=== PATIENT | female | born 1965 | race Caucasian/White ===

== ENCOUNTER 2017-12-02 21:14 | Emergency (ER) | payer BC ==
[2017-12-02 21:23] VITALS: BP 108/59; BMI 51.5
[2017-12-03] MEDS ORDERED: DUONEB 0.5 MG/3 MG NEB ONE (00:37)
[2017-12-03] MEDS ORDERED: SOLU-Medrol 125 MG VIAL IM ONE (00:37)
--- NOTE | 2017-12-03 00:42 | DR.GENAD ---
HPI - PCP Primary Care Physician: Dr. Aggarwal - Complaint/Symptoms Chief Complaint Doctors Comments: Patient is complaining or left ear pain, sore throat, cold, cough, wheezing for the past seven days with no energy. Paitnet state she is a patient of Dr. Aggarwal and is not taking any medicines for wheezing. states she smokes on pack cigarettes daily. she denies chest pain or SOB. She denies nausea or vomiting. States she has been in bed all day and her children made her come to the emergency room. Chief Complaint:: C/O Headache, Cough, Left Ear pain, Body aches Self Treatment fo Chief Complaint: Patient taken Candida Hein - Nurses notes reviewed Nurses Notes Review: Yes - Source History Provided: Patient - Mode of Arrival Mode of Arrival: Ambulatory - Timing Onset of Chief Complaint: 11/25/17 Came on: Gradually - Duration Duration: Constant How lon Duration: Days - Location Location: left ear pain - Severity Severity: Moderate - Modifying Factors Worsens:: nothing Improves:: nothing PMH - PMH Past Medical History: Yes Past Medical History: Gout, Hypertension, Hypothyroidism Past Surgical History: Yes Surgical History: Thyroidectomy Past Surgical History Comment: Tubaligation - Family History History of Family Medical Conditions: Yes Family Medical History: Cancer, Hypertension - Social History Does patient currently use any type of tobacco product: Yes Have you used tobacco products in the last 12 months: Yes Type of Tobacco Use: Cigarettes Alcohol Use: None Do you use any recreational Drugs:: No Lives With: Family Lives Where: Home - infectious screening In the last 2 months have you had wt loss of >10#?: NO Have you had fever, night sweats or hemotysis?: No Have you traveled outside the country in the last 6 months?: No Isolation: Standard ROS - Review of Systems Constitutional: No Symptoms Reported, Chills, Weakness, Fatigue. negative: See HPI, Diaphoresis, Fever, Malaise, Irritable, Loss of Appetite, Other Eyes: No Symptoms Reported ENTM: No Symptoms Reported, Ear Pain, Nose Discharge, Nose Congestion, Throat Pain. negative: See HPI, Ear Discharge, Pulling on Ears, Hearing Loss, Nose Pain, Epistaxis, Mouth Pain, Mouth Swelling, Loose Teeth, Drooling, Throat Swelling, Ear Foreign Body Respiratoy: No Symptoms Reported, Non-Productive Cough, Wheezing. negative: See HPI, Productive Cough, Moist Cough, Dry Cough, Hacking Cough, Barking Cough , Brassy Cough, Orthopnea, Short of Breath, Stridor, Hemoptysis, Other Cardiovascular: No Symptoms Reported. negative: See HPI, Chest Pain, Edema, Palpitations, Syncope, Cyanosis, Skin Mottling, Other Gastrointestinal/Abdominal: No Symptoms Reported. negative: See HPI, Abdominal Pain, Constipation, Diarrhea, Nausea, Vomiting, Food Intolerance, Other Genitourinary: No Symptoms Reported Neurological: No Symptoms Reported. negative: See HPI, Anxiety, Depressed, Emotional Problems, Headache, Numbness, Paresthesia, Pre-existing Deficit, Seizure, Tingling, Tremors, Weakness, Dizziness, Problems Walking, Speech Problem, Other Musculoskeletal: No Symptoms Reported Integumentary: No Symptoms Reported Hematologic/Lymphatic: No Symptoms Reported Endocrine: No Symptoms Reported. negative: See HPI, Excessive Sweating, Flushing, Intolerance to Cold, Intolerance to Heat, Increased Hunger, Increased Thirst, Increased Urine, Unexplained Weight Gain, Unexplained Weight Loss, Failure to Thrive, Decreased Appetite, Other Psychiatric: No Symptoms Reported. negative: See HPI, Anxiety, Depression, Hallucinations, Excessive crying, Suicidal, Other PE - Vital Signs Vitals: Temperature 99.0 F Pulse Rate 97 Respiratory Rate 22 Blood Pressure 108/59 O2 Sat by Pulse Oximetry 96 - General Limitations: No Limitations General Appearance: Alert, In Distress (slight) - Head Head Exam: Normal Inspection, Atraumatic, Normocephalic - Eyes Eye exam: Normal Appearance, PERRL, EOMI. negative: Scleral Icterus, Conjunctival Injection, Nystagmus, Miosis, Mydrasis, Periorbital Swelling, Periorbital Tenderness, Other - ENT ENT Exam: Normal Exam, Normal Oropharynx, Normal External Ear Exam, Mucous Membranes Moist, TM's Normal Bilaterally External Ear Exam: Normal External Inspection TM/Canal Exam: Bilateral Normal Nose Exam: Normal Nose Exam Mouth Exam: Normal Inspection Throat Exam: Normal Inspection - Neck Neck Exam: Normal Inspection, Full ROM, Trachea Midline - Chest Chest Inspection: Normal Inspection, Symmetric Chest Wall Rise - Respiratory Respiratory Exam: Normal Lung Sounds Bilat Respiratory Exam: Bilateral Wheezing, Bilateral Rhonchi (prolonged expiration) - Cardiovascular Cardiovascular Exam: Regular Rate, Normal Rhythm, Normal Heart Sounds - Abdominal Exam Abdominal Exam: Normal Inspection, Normal Bowel Sounds, Soft Abdominal Tenderness: negative: RUQ, RLQ, LUQ, LLQ, Epigastrium, Suprapubic, Diffuse, Mild, Moderate, Severe, Other - Extremities Extremities Exam: Normal Inspection, Full ROM, Normal Capillary Refill - Back Back Exam: Normal Inspection, Full ROM. negative: Tenderness, (R) CVA Tenderness, (L) CVA Tenderness, Muscle Spasm, Paraspinal Tenderness, Vertebral Tenderness, Rashes, (R) Sciatic Notch Tenderness, (L) Sciatic Notch Tendern, (R ) Straight Leg Raise, (L) Straight Leg Raise, Other - Neurologic Neurological Exam: Alert, Oriented X3, CN II-XII Intact, Normal Gait, Reflexes Normal - Psychiatric Psychiatric Exam: Normal Affect, Normal Mood - Skin Skin Exam: Warm, Dry, Intact, Normal Color. negative: Rash, Cyanosis, Diaphoresis, Erythema, Pallor, Mottled, Other ROR - Labs Reviewed Laboratory Results Reviewed?: Yes (all labs and x-ray results reveiwed and discussed with patient) Laboratory: Influenza Type A (PCR) Positive (NEGATIVE) A 12/03/17 01:14 Influenza Type B (PCR) Negative (NEGATIVE) 12/03/17 01:14 - XRAY XRAY Interpreted by: Radiologist (CXR: Mild increased central peribronchial thickening is noted bilaterally which is nonspecific however can be seen in bronchitis) - Diagnosis Discharge Problem: Influenza A, Sinusitis, acute Acute bronchitis Qualifiers: Bronchitis organism: other organism Qualified Code(s): J20.8 - Acute bronchitis due to other specified organisms - Discharge Plan Disposition: 01 HOME, SELF-CARE Condition: Stable Prescriptions: Cephalexin [KEFLEX CAP 500 MG *] 500 mg PO TID #30 cap Cetirizine HCl [Zyrtec Tab 10 mg] 10 mg PO DAILY #30 tab Guaifenesin-Codeine [ROBITUSSIN AC SYRUP (W/CODEINE) *] 10 ml PO Q6H PRN #120 ml PRN Reason: Cough/Congestion Oseltamivir Phosphate [Tamiflu] 75 mg PO BID #10 cap - Follow ups/Referrals Follow ups/Referrals: Fabian Aggarwal [Primary Care Provider] - 3 days - Instructions Instructions: Influenza, Adult, [id number], Acute Bronchitis, Sinusitis, Adult, [id number]
[2017-12-03] MEDS ORDERED: DUONEB 0.5 MG/3 MG ONE (00:45)
[2017-12-03] MEDS ORDERED: SOLU-Medrol 125 MG VIAL ONE (01:09)
--- NOTE | 2017-12-03 02:25 | RAD ---
AP Chest Indication: Body aches with cough Comparison: None available Findings: The trachea is midline. The cardiac silhouette is unremarkable. Mild increased central peribronchia l thickening is noted bilaterally which is nonspecific however can be seen in setting of acute bronch itis and/or viral/atypical pneumonia. No dense airspace consolidation, pleural effusion or pneumothor ax.. The bony thorax is unremarkable. IMPRESSION: 1. Mild increased central peribronchial thickening is noted bilaterally which is nonspecific however can be seen in setting of acute bronchitis and/or viral/atypical pneumonia. Reported By:
[2017-12-03] MEDS ORDERED: KEFLEX CAP 500 MG PO ONE ×2 (02:38→02:46)
[2017-12-03] MEDS ORDERED: ROBITUSSIN AC PO STA (02:39)
[2017-12-03] MEDS ORDERED: TAMIFLU PO ONE (02:46)
[2017-12-03] MEDS ORDERED: ROBITUSSIN AC ONE (02:47)
[2017-12-03] MEDS ORDERED: TAMIFLU PO SCH (03:00)
== END 2017-12-03 02:55 | disposition home or self-care (01) ==
LOC: ER 21:31
DX: J10.1 Influenza due to other identified influenza virus with other respiratory manifestations (principal); J01.80 Other acute sinusitis; J20.8 Acute bronchitis due to other specified organisms
CPT/HCPCS: 71045; 87502; 94640; 96372; 99283; G9035; J2930; J7620

== ENCOUNTER 2018-01-24 16:59 | Inpatient (IN) | payer BC ==
--- NOTE | 2018-01-24 17:39 | DR.DIZZY ---
HPI - Time seen Time seen: 17:35 - PCP Primary Care Physician: MARGARITO JERONIMO - HPI Comment HPI Comment: HISTORY BELOW. - Complaint Chief Complaint Doctor Comments: DIZZINESS, ATAXIA AND HEADACHE TIMES FEW DAYS. GETTING WORSE. NAUSEA PRESENT.NO FEVER. Chief Complaint:: PT C/O BEING DIZZY AND NAUSEATED FOR THE PAST FEW DAYS AND IT IS WORSE WHEN SHE BENDS OVER ,, PT STATES " I BOYS CAME AND SAW ME AND MADE ME COME" PT ALSO C/O SOB. - Nurses Notes Reviewed Nurses Notes Review: Yes - Source History Provided: Patient - Mode of Arrival Mode of Arrival: Ambulatory - Timing Onset of Chief Complaint: 01/22/18 Symptom Onset: Unknown - Duration Duration: Constant Duration: Days - Location of Weakness Weakness Location: None - Context Onset: At rest Does pt take pot. toxic medication?: No History of: None Stroke Symptoms: Ataxia, Dizziness - Severity Severity: Normal activity level - Modifying factors Worsens: Turning Head - Associated signs and symptoms Associated Signs and Symptoms: Vertigo, Imbalance PMH - PMH Past Medical History: Yes Past Medical History: Gout, Hypertension, Hypothyroidism Past Medical History Comment: HTN , GOUT Past Surgical History: Yes Surgical History: Thyroidectomy Past Surgical History Comment: THYROIDECTOMY, - Family History History of Family Medical Conditions: No Family Medical History: Cancer, Hypertension - Social History Does patient currently use any type of tobacco product: Yes Have you used tobacco products in the last 12 months: Yes Type of Tobacco Use: Cigarettes How many years tobacco product used: 30 Does any household member use tobacco: No Alcohol Use: None Do you use any recreational Drugs:: No Lives With: Family Lives Where: Home - infectious screening In the last 2 months have you had wt loss of >10#?: NO Have you had fever, night sweats or hemotysis?: No Have you traveled outside the country in the last 6 months?: No ROS - Review of Systems Constitutional: Weakness, Fatigue. negative: Chills, Fever Eyes: No Symptoms Reported. negative: Eye Pain, Discharge ENTM: negative: Ear Pain, Nose Discharge, Nose Congestion, Throat Pain Respiratoy: Short of Breath (ON EXERTION). negative: Productive Cough, Non- Productive Cough, Wheezing, Hemoptysis Cardiovascular: No Symptoms Reported Gastrointestinal/Abdominal: Nausea Genitourinary: No Symptoms Reported Neurological: Headache, Weakness, Dizziness Musculoskeletal: No Symptoms Reported Integumentary: No Symptoms Reported Hematologic/Lymphatic: No Symptoms Reported Endocrine: No Symptoms Reported All Other Systems: Reviewed and Negative PE - Vital Signs Vitals: Temperature 97.3 F Pulse Rate 88 Respiratory Rate 18 Blood Pressure 129/67 O2 Sat by Pulse Oximetry 96 - General Limitations: No Limitations General Appearance: Alert - Head Head Exam: Normal Inspection - Eyes Eye exam: Normal Appearance Pupils: Regular, Round: Bilateral, Reactive: Bilateral Sclera/Conjunctival: Normal Inspection: Bilateral - ENT ENT Exam: Normal External Ear Exam - Neck Neck Exam: Trachea Midline - Chest Chest Inspection: Symmetric Chest Wall Rise - Respiratory Respiratory Exam: Normal Lung Sounds Bilat Respiratory Exam: Bilateral Clear to Auscultation - Cardiovascular Cardiovascular Exam: Regular Rate, Normal Rhythm, Normal Heart Sounds - Abdominal Exam Abdominal Exam: Normal Bowel Sounds, Soft. negative: Tenderness - Rectal Rectal Exam: Deferred - Extremeties Extremities Exam: Normal Inspection - Back Back Exam: Normal Inspection - Neurologic Neurological Exam: Alert, Oriented X3, CN II-XII Intact, Reflexes Normal. negative: Normal Gait (ATAXIA), Motor Sensory Deficit Speech: Fluid Speech Cranial Nerve Exam: EOM Function (II, III, IV, ): Normal, Facial Sensation (V) : Normal, Facial Palsy (VII): Normal, Gag reflex (XI): Normal, Spinal Accessory Function (XI): Normal, Tongue Deviation: Normal Cerebellar Function: Ataxic Gait Motor Strength - LUE: 5/5 Motor Strength - RUE: 5/5 Motor Strength - LLE: 5/5 Motor Strength - RLE: 5/5 Upper Motor Neuron Exam: Babinski Sign: Normal DTR: achilles tendon (L): 4+, achilles tendon (R): 4+, brachioradialis (L): 4+, brachioradialis (R): 4+, Patellar (L): 4+, patellar (R): 4+ - Psychiatric Psychiatric Exam: Normal Affect, Normal Mood - Skin Skin Exam: Normal Color MDM - Additional Information Additional Information Obtained From: Family - Differential Diagnosis Differential Diagnosis: Anemia, CVA, Dehydration, Electrolyte disorder, Labyrinthitis, Myocardial Infarction, TIA (CVA), Vertigo- central Course - Treatment Treatment: SEE ORDERS. - Consultation Consultation Comments: DISCUSS PATIENT WITH DR. PIMENTEL. HE WILL ADMIT PATIENT. - Education/Counseling Education/Counseling: Patient, Family, Education Educated On: Diagnosis, Needs for Follow Up ROR - Labs Reviewed Laboratory Results Reviewed?: Yes Result Diagrams: 01/24/18 18:08 01/24/18 18:08 Laboratory: WBC 9.4 X10^3/uL (3.6-10.0) 01/24/18 18:08 RBC 4.36 X10^6/uL (3.5-5.4) 01/24/18 18:08 Hgb 12.2 g/dL (12.0-16.0) 01/24/18 18:08 Hct 36.5 % (36.0-47.0) 01/24/18 18:08 MCV 83.7 fL (80.0-100.0) 01/24/18 18:08 MCH 28.0 pg (27.0-34.0) 01/24/18 18:08 MCHC 33.5 g/dL (33.0-35.0) 01/24/18 18:08 RDW 16.1 % (11.6-16.5) 01/24/18 18:08 Plt Count 209 X10^3/uL (150.0-450.0) 01/24/18 18:08 MPV 9.0 fL (7.4-11.0) 01/24/18 18:08 Neut % (Auto) 80.6 % (42.0-75.0) H 01/24/18 18:08 Lymph % (Auto) 8.4 % (21.0-51.0) L 01/24/18 18:08 [place] % (Auto) 9.2 % (0.0-13.0) 01/24/18 18:08 Eos % (Auto) 0.6 % (0.9-2.9) L 01/24/18 18:08 Baso % (Auto) 1.2 % (0.2-1.0) H 01/24/18 18:08 Neut # (Auto) 7.6 x10^3/uL (2.2-4.8) H 01/24/18 18:08 Lymph # (Auto) 0.8 X10^3/uL (1.3-2.9) L 01/24/18 18:08 [place] # (Auto) 0.9 x10^3/uL (0.3-0.8) H 01/24/18 18:08 Eos # (Auto) 0.1 x10^3/uL (0.0-0.2) 01/24/18 18:08 Baso # (Auto) 0.1 X10^3/uL (0.0-0.1) 01/24/18 18:08 Absolute Nucleated RBC 0.0 /100WBC 01/24/18 18:08 Sodium 136 mmol/L (136-145) 01/24/18 18:08 Corrected Sodium 137 mmol/L (136-145) 01/24/18 18:08 Potassium 3.8 mmol/L (3.5-5.1) 01/24/18 18:08 Chloride 99 mmol/L (98-107) 01/24/18 18:08 Carbon Dioxide 22.5 mmol/L (21-32) 01/24/18 18:08 BUN 68 mg/dL (7-18) H 01/24/18 18:08 Creatinine 2.72 mg/dL (0.55-1.02) H 01/24/18 18:08 Est GFR (MDRD) Af Amer 24 (>60) L 01/24/18 18:08 Est GFR (MDRD) Non-Af 20 (>60) L 01/24/18 18:08 Glucose 159 mg/dL (65-99) H 01/24/18 18:08 Calcium 8.7 mg/dL (8.5-10.1) 01/24/18 18:08 Corrected Calcium TNP 01/24/18 18:08 Total Bilirubin 0.20 mg/dL (0.2-1.0) 01/24/18 18:08 AST 9 Units/L (15-37) L 01/24/18 18:08 ALT 22 Units/L (12-78) 01/24/18 18:08 Alkaline Phosphatase 85 Units/L (46-116) 01/24/18 18:08 Creatine Kinase 19 Units/L (26-192) L 01/24/18 22:57 CK-MB (CK-2) < 1.0 ng/mL (0-4.0) 01/24/18 22:57 CK/CKMB % Calc 5.3 % (<4) 01/24/18 22:57 Troponin I < 0.02 ng/mL (0-1.5) 01/24/18 22:57 Total Protein 7.5 g/dL (6.4-8.2) 01/24/18 18:08 Albumin 3.4 g/dL (3.4-5.0) 01/24/18 18:08 Globulin 4.1 g/dL (2.5-4.5) 01/24/18 18:08 Albumin/Globulin Ratio 0.8 Ratio (1.1-2.1) L 01/24/18 18:08 - XRAY XRAY Interpreted by: Radiologist XRAY Findings: REPORT DISCUSS WITH PATIENT. - Diagnosis Discharge Problem: Vertigo, Dizziness, Dehydration, Elevated BUN, Elevated serum creatinine - Discharge Plan Disposition: ADMITTED INPATIENT Condition: Stable - Follow ups/Referrals - Instructions
[2018-01-24 18:15] LABS: BASOPHILS # (AUTO) 0.1 X10^3/uL (0.0-0.1); BASOPHILS % (AUTO) 1.2 % (0.2-1.0); EOSINOPHILS # (AUTO) 0.1 x10^3/uL (0.0-0.2); EOSINOPHILS % (AUTO) 0.6 % (0.9-2.9); HEMATOCRIT 36.5 % (36.0-47.0); HEMOGLOBIN 12.2 g/dL (12.0-16.0); LYMPHOCYTES # (AUTO) 0.8 X10^3/uL (1.3-2.9); LYMPHOCYTES % (AUTO) 8.4 % (21.0-51.0); MEAN CORPUSCULAR HGB CONC 33.5 g/dL (33.0-35.0); MEAN CORPUSCULAR VOLUME 83.7 fL (80.0-100.0); MONOCYTES # (AUTO) 0.9 x10^3/uL (0.3-0.8); MONOCYTES % (AUTO) 9.2 % (0.0-13.0); NEUTROPHILS # (AUTO) 7.6 x10^3/uL (2.2-4.8); NEUTROPHILS % (AUTO) 80.6 % (42.0-75.0); PLATELET COUNT 209 X10^3/uL (150.0-450.0); RED BLOOD COUNT 4.36 X10^6/uL (3.5-5.4); RED CELL DISTRIBUTION WIDTH 16.1 % (11.6-16.5); WHITE BLOOD COUNT 9.4 X10^3/uL (3.6-10.0)
--- NOTE | 2018-01-24 18:32 | CT ---
HISTORY: Dizziness, headache, nausea Study: CT brain without contrast Comparison: None Technique: Multiple axial images of the brain were obtained from the skull base to the vertex without administra tion of IV contrast. Findings: No acute intraparenchymal hemorrhage or mass can be identified. No extra-axial fluid collections are seen. No alteration in the attenuation of the brain parenchyma can be identified to suggest acute o r subacute ischemic change. The ventricular system is symmetric and nondilated. The extracranial st ructures are grossly unremarkable. IMPRESSION: 1. No acute intracranial process can be identified. Reported By:
[2018-01-24 18:48] LABS: BLOOD UREA NITROGEN 68 mg/dL (7-18); CALCIUM 8.7 mg/dL (8.5-10.1); CARBON DIOXIDE 22.5 mmol/L (21-32); CHLORIDE 99 mmol/L (98-107); COR NA(FOR HYPERGLY) 137 mmol/L (136-145); CREATININE 2.72 mg/dL (0.55-1.02); SODIUM 136 mmol/L (136-145); TROPONIN I < 0.02 ng/mL (0-1.5); eGFR BLACK RACES 24 (>60); eGFR NON BLACK RACES 20 (>60)
[2018-01-24 18:52] LABS: ALANINE AMINOTRANSFERASE 22 Units/L (12-78); ALBUMIN 3.4 g/dL (3.4-5.0); ALKALINE PHOSPHATASE 85 Units/L (46-116); ASPARTATE AMINO TRANSFERASE 9 Units/L (15-37); CKMB % 4.8 % (<4); CREATINE KINASE 21 Units/L (26-192); CREATINE KINASE MB < 1.0 ng/mL (0-4.0); TOTAL PROTEIN 7.5 g/dL (6.4-8.2)
[2018-01-24] MEDS ORDERED: NS 1000 ML 1,000 ML ONE (19:12)
[2018-01-24] MEDS ORDERED: NS 1000 ML 1,000 ML IV ONE (19:15)
[2018-01-24] MEDS ORDERED: NEURONTIN CAP 300 MG PO PRN (19:51)
[2018-01-24] MEDS ORDERED: PATIENT'S HOME MEDICATION (Escitalopram Oxalate [Escitalopram Oxalate] 20 MG) PO SCH (21:00)
[2018-01-24] MEDS: KLONOPIN TAB 0.5 MG PO SCH (21:01)
[2018-01-24] MEDS: NICOTINE PATCH TD SCH (21:05)
--- NOTE | 2018-01-24 21:36 | DR.H&P ---
H&P - History & Physical for Day of: H&P Date: 01/24/18 - Chief Complaint Chief Complaint: DIZZINESS, NAUSEA, SHORTNESS OF BREATH - Allergies Allergies/Adverse Reactions: Allergies Allergy/AdvReac Type Severity Reaction Status Date / Time No Known Drug Allergies Allergy Verified 01/24/18 17:00 - History of Present Illness History of Present Illness: IS A 52 YEAR OLD PATIENT OF OURS WHO PRESENTED TO THE EMERGENCY ROOM WITH COMPLAINTS OF DIZZINESS, SHORTNESS OF BREATH, AND NAUSEA FOR THE PAST TWO DAYS. PATIENT REPORTS THAT SYMPTOMS ARE WORSE WHEN SHE BENDS OVER. ASSOCIATED SYMPTOMS ARE WEAKNESS, FATIGUE, AND HEADACHE. PATIENT HAS A MEDICAL HISTORY OF HYPERTENSION, THYROID CANCER WITH THYROIDECTOMY, AND ANXIETY. ON EXAMINATION, SHE IS NOTED WITH AN ATAXIC GAIT. UPON ARRIVAL TO THE ER, VITALS WERE 96.6-88-18-96%-129/67. LABS WERE OBTAINED. ABNORMAL LAB VALUES INCLUDE THE FOLLOWING: BUN 68, CREATININE 2.72, GLUCOSE 159 , AST 9, CREAINE KINASE 21. A BRAIN CT WAS OBTAINED AND REVEALED NO ACUTE INTRACRANIAL PROCESS IDENTIFIED. EKG REVEALED SINUS RHYTHM WITH HR 82. PATIENT WAS GIVEN AN IV BOLUS OF NORMAL SALINE WITH NO IMPROVEMENT IN SYMPTOMS. PATIENT WAS ADMITTED TO THE HOSPITAL FOR FURTHER EVALUATION AND TREATMENT OF DEHYDRATION , VERTIGO, AND ATAXIA. SHE WAS STARTED ON NORMAL SALINE AT 150ML/HR. WE PLAN TO FOLLOW UP WITH AM LABS AND CONTINUE TO MONITOR PATIENT. - Past Medical History Past Medical History: Gout, Hypertension, Hypothyroidism - Past Surgical History Surgical History: Thyroidectomy - Family History Family Medical History: Cancer, Hypertension - Social History Does patient currently use any type of tobacco product: Yes Have you used tobacco products in the last 12 months: Yes Type of Tobacco Use: Cigarettes How many years tobacco product used: 30 Does any household member use tobacco: No Alcohol Use: None Drug Use: None - Medications Home Medications: Allopurinol [Allopurinol] 1 tab PO DAILY 01/24/18 [History Confirmed 01/24/18] Clonazepam [Clonazepam] 1 tab PO HS 01/24/18 [History Confirmed 01/24/18] Escitalopram Oxalate 20 mg PO HS 01/24/18 [History Confirmed 01/24/18] Gabapentin [NEURONTIN CAP 300 mg *] 1 tab PO TID PRN 01/24/18 [History Confirmed 01/24/18] Levothyroxine Sodium [Synthroid 300 mcg tab] 1 tab PO DAILY 01/24/18 [History Confirmed 01/24/18] Lisinopril/Hydrochlorothiazide [Lisinopril-Hctz 20-25 mg Tab] 1 tab PO DAILY 01/08 [History Confirmed 01/24/18] Tramadol HCl [Tramadol HCl] 1 tab PO TID PRN 01/24/18 [History Confirmed ] - Review of Systems Constitutional: Weakness, Malaise Eyes: No Symptoms Reported ENT: No Symptoms Reported Respiratory: Shortness of Breath. denies: Cough, Dry, Hemoptysis, SOB with Excertion, Pleuritic Pain, Sputum, Wheezing Cardiovascular: Light Headedness. denies: Chest Pain, Palpitations, Paroxysmal Noc. Dyspnea, Edema Gastrointestinal: Nausea. denies: Vomiting, Abdominal Pain, Diarrhea, Constipation, Melena, Hematochezia Genitourinary: No Symptoms Reported Musculoskeletal: No Symptoms Reported Skin: No Symptoms Reported Neurological: Weakness, Incoordination, Other (HEADACHE) - Physical Exam Vital Signs: Temperature 98.1 F Pulse Rate [Left Radial] 82 Pulse Rate 88 Respiratory Rate 24 Blood Pressure [Left Arm] 100/52 Blood Pressure 129/67 O2 Sat by Pulse Oximetry 97 Oriented: Normal Eyes: Normal Ear: Normal Nose: Normal Throat: Normal Respiratory: Clear Throughout Cardiovascular: Normal. negative: S3, S4, Murmur, Edema : Normal Auscultation: Bowel Sounds: Normal Palpation: Normal Tenderness: Normal Skin: Normal Musculoskeletal: Motor Deficit (ATAXIC GAIT ) Psychiatric: Normal Affect: Normal Speech Pattern: Clear - Assessment/Plan (1) Dehydration Status: Acute Plan: NORMAL SALINE AT 150ML/HR, CONTINUE TO MONITOR (2) Ataxia Status: Acute (3) Vertigo Status: Acute
[2018-01-24] MEDS ORDERED: NS 1000 ML 1,000 ML IV SCH (22:00)
[2018-01-24 23:25] LABS: CKMB % 5.3 % (<4); CREATINE KINASE 19 Units/L (26-192); CREATINE KINASE MB < 1.0 ng/mL (0-4.0); TROPONIN I < 0.02 ng/mL (0-1.5)
[2018-01-25] MEDS: ULTRAM PO PRN ×2 (00:39→20:45)
[2018-01-25 05:32] LABS: BASOPHILS % (AUTO) 0.4 % (0.2-1.0); EOSINOPHILS % (AUTO) 0.6 % (0.9-2.9); HEMOGLOBIN 11.2 g/dL (12.0-16.0); LYMPHOCYTES # (AUTO) 1.2 X10^3/uL (1.3-2.9); LYMPHOCYTES % (AUTO) 14.8 % (21.0-51.0); MEAN CORPUSCULAR HEMOGLOBIN 28.2 pg (27.0-34.0); MEAN CORPUSCULAR HGB CONC 34.1 g/dL (33.0-35.0); MEAN CORPUSCULAR VOLUME 82.7 fL (80.0-100.0); MEAN PLATELET VOLUME 9.3 fL (7.4-11.0); MONOCYTES # (AUTO) 0.8 x10^3/uL (0.3-0.8); NEUTROPHILS # (AUTO) 6.1 x10^3/uL (2.2-4.8); NEUTROPHILS % (AUTO) 74.2 % (42.0-75.0); PLATELET COUNT 188 X10^3/uL (150.0-450.0); RED BLOOD COUNT 3.99 X10^6/uL (3.5-5.4); RED CELL DISTRIBUTION WIDTH 16.2 % (11.6-16.5); WHITE BLOOD COUNT 8.3 X10^3/uL (3.6-10.0)
[2018-01-25 05:41] LABS: CKMB % 2.9 % (<4); CREATINE KINASE 34 Units/L (26-192); CREATINE KINASE MB < 1.0 ng/mL (0-4.0); TROPONIN I < 0.02 ng/mL (0-1.5)
[2018-01-25 05:49] LABS: CALCIUM 8.3 mg/dL (8.5-10.1); CARBON DIOXIDE 19.5 mmol/L (21-32); COR CA(FOR HYPOALB) 9.1 mg/dL (8.5-10.1); CREATININE 2.4 mg/dL (0.55-1.02); MAGNESIUM 1.9 mg/dL (1.7-2.9); TOTAL PROTEIN 6.8 g/dL (6.4-8.2)
[2018-01-25] MEDS: SYNTHROID 150 mcg TAB PO SCH (06:32)
[2018-01-25 08:35] LABS: BILIRUBIN,URINE NEGATIVE (NEGATIVE); BLOOD/HEMOGLOBIN,URINE 1+ (NEGATIVE); GLUCOSE, URINE 1+ (NEGATIVE); KETONES,URINE NEGATIVE (NEGATIVE); LEUKOCYTE ESTERASE ,URINE NEGATIVE (NEGATIVE); NITRITES,URINE NEGATIVE (NEGATIVE); PROTEIN,URINE 1+ (NEGATIVE); UROBILINOGEN,URINE NORMAL (NORMAL)
[2018-01-25] MEDS ORDERED: LEVOTHYROXINE SODIUM PO SCH (09:00)
[2018-01-25] MEDS ORDERED: LEXAPRO ONE (09:00)
[2018-01-25] MEDS ORDERED: ZYLOPRIM PO SCH (09:00)
[2018-01-25] MEDS ORDERED: ZESTORETIC 20/25 MG PO SCH (09:00)
[2018-01-25 09:09] LABS: APPEARANCE,URINE CLEAR (CLEAR); BACTERIA,URINE TRACE /HPF (NEGATIVE); COLOR,URINE YELLOW (YELLOW); SQUAMOUS EPITHELIAL CELL,UR MODERATE /HPF (NEGATIVE)
[2018-01-25] MEDS: NICOTINE PATCH TD SCH (09:11)
[2018-01-25] MEDS: LEXAPRO PO SCH (09:12)
[2018-01-25] MEDS ORDERED: NS 1000 ML 1,000 ML with SODIUM BICARBONATE 8.4% INJ ADULT 50 ML IV ONE ×4 (09:30→09:31)
[2018-01-25 10:41] VITALS: BMI 50.5
[2018-01-25] MEDS: NS 1000 ML 1,000 ML with SODIUM BICARBONATE 8.4% INJ ADULT 50 ML IV SCH ×4 (14:13→16:39)
--- NOTE | 2018-01-25 20:07 | PCM.PROG ---
Progress Note - Progress Note for Day of Date: 01/25/18 - Subjective Subjective: IS BEING TREATED FOR DEHYDRATION AND VERTIGO. TODAY, SHE IS ALERT AND ORIENTED, LYING IN BED ON MORNING ROUNDS. SHE IS NOTED WITH COMPLAINTS OF GENERALIZED WEAKNESS AND INTERMITTENT NAUSEA. ON EXAMINATION, HEART IS REGULAR IN RATE AND RHYTHM. BILATERAL LUNGS ARE NOTED WITH DIMINISHED LUNG SOUNDS. ABDOMEN IS ROUND, SOFT, AND NON-TENDER WITH NORMAL BOWEL SOUNDS NOTED IN ALL QUADRANTS. THERE IS NORMAL RANGE OF MOTION NOTED TO ALL EXTREMITIES. HER VITALS THIS MORNING ARE 98.1-76-20-97%-130/50. LABS WERE OBTAINED. ABNORMAL LAB VALUES INCLUDE THE FOLLOWING: HCT 11.2, HGB 33.0, CARBON DIOXIDE 19.5, BUN 69, CREATININE 2.40, GLUCOSE 129, CALCIM 8.3, AST 12, ALBUMIN 3.0. CARDIAC ENZYMES AND EKG HAVE BEEN WITHIN NORMAL LIMITS. TODAY, WE WILL BOLUS 2 LITERS OF NORMAL SALINE AND INCREASE MAINTENANCE FLUIDS TO 200ML/HR. WE WILL ALSO ADD 1 AMP OF SODIUM BICARB TO EACH LITER OF IV FLUIDS. WE WILL HOLD HER DIURETICS AND BLOOD PRESSURE MEDICATION DUE TO DECREASED BLOOD PRESSURE. OTHERWISE, WE WILL FOLLOW UP WITH AM LABS AND CONTINUE TO MONITOR PATIENT. - Past Medical Family Social History Past Med/Fam/Surg Hx: No changes since H&P Allergies: Allergies No Known Drug Allergies Allergy (Verified 01/24/18 17:00) - Review of Systems ROS: No change since H&P - Vital Signs and I&O's Vital Signs: Temperature 97.6 F Pulse Rate [Left Radial] 78 Pulse Rate 88 Respiratory Rate 20 Blood Pressure [Left Arm] 107/60 Blood Pressure 129/67 O2 Sat by Pulse Oximetry 95 Intake and Output: Intake & Output 01/23/18 01/24/18 01/25/18 01/26/18 11:59 11:59 11:59 11:59 Intake Total 1909 760 Balance 1909 760 - Physical Exam Oriented: Normal Eyes: Normal Ear: Normal Nose: Normal Throat: Normal Respiratory: Generalized, Diminished Cardiovascular: Normal. negative: S3, S4, Murmur, Edema : Normal Auscultation: Bowel Sounds: Normal Palpation: Normal Tenderness: Normal Skin: Decreased Turgur Musculoskeletal: Normal Psychiatric: Normal Affect: Normal Speech Pattern: Clear, Appropriate - Laboratory and Diagnostics Result Diagrams: 01/25/18 04:46 01/25/18 04:46 Labs: Laboratory WBC 8.3 X10^3/uL (3.6-10.0) 01/25/18 04:46 RBC 3.99 X10^6/uL (3.5-5.4) 01/25/18 04:46 Hgb 11.2 g/dL (12.0-16.0) L 01/25/18 04:46 Hct 33.0 % (36.0-47.0) L 01/25/18 04:46 MCV 82.7 fL (80.0-100.0) 01/25/18 04:46 MCH 28.2 pg (27.0-34.0) 01/25/18 04:46 MCHC 34.1 g/dL (33.0-35.0) 01/25/18 04:46 RDW 16.2 % (11.6-16.5) 01/25/18 04:46 Plt Count 188 X10^3/uL (150.0-450.0) 01/25/18 04:46 MPV 9.3 fL (7.4-11.0) 01/25/18 04:46 Neut % (Auto) 74.2 % (42.0-75.0) 01/25/18 04:46 Lymph % (Auto) 14.8 % (21.0-51.0) L 01/25/18 04:46 [place] % (Auto) 10.0 % (0.0-13.0) 01/25/18 04:46 Eos % (Auto) 0.6 % (0.9-2.9) L 01/25/18 04:46 Baso % (Auto) 0.4 % (0.2-1.0) 01/25/18 04:46 Neut # (Auto) 6.1 x10^3/uL (2.2-4.8) H 01/25/18 04:46 Lymph # (Auto) 1.2 X10^3/uL (1.3-2.9) L 01/25/18 04:46 [place] # (Auto) 0.8 x10^3/uL (0.3-0.8) 01/25/18 04:46 Eos # (Auto) 0.0 x10^3/uL (0.0-0.2) 01/25/18 04:46 Baso # (Auto) 0.0 X10^3/uL (0.0-0.1) 01/25/18 04:46 Absolute Nucleated RBC 0.0 /100WBC 01/25/18 04:46 Sodium 137 mmol/L (136-145) 01/25/18 04:46 Corrected Sodium 138 mmol/L (136-145) 01/25/18 04:46 Potassium 3.5 mmol/L (3.5-5.1) 01/25/18 04:46 Chloride 103 mmol/L (98-107) 01/25/18 04:46 Carbon Dioxide 19.5 mmol/L (21-32) L 01/25/18 04:46 BUN 69 mg/dL (7-18) H 01/25/18 04:46 Creatinine 2.40 mg/dL (0.55-1.02) H 01/25/18 04:46 Est GFR (MDRD) Af Amer 27 (>60) L 01/25/18 04:46 Est GFR (MDRD) Non-Af 23 (>60) L 01/25/18 04:46 Glucose 129 mg/dL (65-99) H 01/25/18 04:46 Calcium 8.3 mg/dL (8.5-10.1) L 01/25/18 04:46 Corrected Calcium 9.1 mg/dL (8.5-10.1) 01/25/18 04:46 Magnesium 1.9 mg/dL (1.7-2.9) 01/25/18 04:46 Total Bilirubin 0.20 mg/dL (0.2-1.0) 01/25/18 04:46 AST 12 Units/L (15-37) L 01/25/18 04:46 ALT 19 Units/L (12-78) 01/25/18 04:46 Alkaline Phosphatase 75 Units/L (46-116) 01/25/18 04:46 Creatine Kinase 34 Units/L (26-192) 01/25/18 04:46 CK-MB (CK-2) < 1.0 ng/mL (0-4.0) 01/25/18 04:46 CK/CKMB % Calc 2.9 % (<4) 01/25/18 04:46 Troponin I < 0.02 ng/mL (0-1.5) 01/25/18 04:46 Total Protein 6.8 g/dL (6.4-8.2) 01/25/18 04:46 Albumin 3.0 g/dL (3.4-5.0) L 01/25/18 04:46 Globulin 3.8 g/dL (2.5-4.5) 01/25/18 04:46 Albumin/Globulin Ratio 0.8 Ratio (1.1-2.1) L 01/25/18 04:46 Specimen Type Clean catch urine 01/25/18 08:04 Urine Color Yellow (YELLOW) 01/25/18 08:04 Urine Appearance Clear (CLEAR) 01/25/18 08:04 Urine pH 5.0 (5.0 - 8.0) 01/25/18 08:04 Ur Specific [place] 1.010 (1.000-1.030) 01/25/18 08:04 Urine Protein 1+ (NEGATIVE) 01/25/18 08:04 Urine Glucose (UA) 1+ (NEGATIVE) 01/25/18 08:04 Urine Ketones Negative (NEGATIVE) 01/25/18 08:04 Urine Occult Blood 1+ (NEGATIVE) 01/25/18 08:04 Urine Nitrite Negative (NEGATIVE) 01/25/18 08:04 Urine Bilirubin Negative (NEGATIVE) 01/25/18 08:04 Urine Urobilinogen Normal (NORMAL) 01/25/18 08:04 Ur Leukocyte Esterase Negative (NEGATIVE) 01/25/18 08:04 Urine RBC 3-5 /HPF (NONE SEEN) 01/25/18 08:04 Urine WBC 3-5 /HPF (NONE SEEN) 01/25/18 08:04 Ur Squamous Epith Cells Moderate /HPF (NEGATIVE) 01/25/18 08:04 Urine Bacteria Trace /HPF (NEGATIVE) 01/25/18 08:04 Ur Culture Indicated? No/not indicated 01/25/18 08:04 - Plan (1) Dehydration Status: Acute Plan: BOLUS 2 LITERS OF NORMAL SALINE, MAINTENANCE FLUIDS NORMAL SALINE AT 200ML /HR, 1 AMP SODIUM BICARB IN EACH LITER OF IV FLUIDS, CONTINUE TO MONITOR (2) Ataxia Status: Resolved (3) Vertigo Status: Acute Plan: CONTINUE TO MONITOR
[2018-01-25] MEDS: KLONOPIN TAB 0.5 MG PO SCH (20:45)
[2018-01-25] MEDS ORDERED: NORCO 5/325 MG TAB PO PRN (22:07)
[2018-01-26] MEDS: NS 1000 ML 1,000 ML with SODIUM BICARBONATE 8.4% INJ ADULT 50 ML IV SCH ×2 (01:51)
[2018-01-26 05:37] LABS: BASOPHILS % (AUTO) 0.5 % (0.2-1.0); EOSINOPHILS % (AUTO) 0.8 % (0.9-2.9); HEMATOCRIT 32.1 % (36.0-47.0); LYMPHOCYTES # (AUTO) 1.1 X10^3/uL (1.3-2.9); LYMPHOCYTES % (AUTO) 18.4 % (21.0-51.0); MEAN CORPUSCULAR HEMOGLOBIN 28.1 pg (27.0-34.0); MEAN CORPUSCULAR HGB CONC 34.2 g/dL (33.0-35.0); MEAN CORPUSCULAR VOLUME 82.2 fL (80.0-100.0); MEAN PLATELET VOLUME 9.2 fL (7.4-11.0); MONOCYTES # (AUTO) 0.6 x10^3/uL (0.3-0.8); MONOCYTES % (AUTO) 10.7 % (0.0-13.0); NEUTROPHILS # (AUTO) 4.1 x10^3/uL (2.2-4.8); NEUTROPHILS % (AUTO) 69.6 % (42.0-75.0); PLATELET COUNT 196 X10^3/uL (150.0-450.0); RED BLOOD COUNT 3.91 X10^6/uL (3.5-5.4); RED CELL DISTRIBUTION WIDTH 15.5 % (11.6-16.5); WHITE BLOOD COUNT 5.8 X10^3/uL (3.6-10.0)
[2018-01-26 05:51] LABS: ALBUMIN 2.9 g/dL (3.4-5.0); CALCIUM 8.4 mg/dL (8.5-10.1); CARBON DIOXIDE 26.1 mmol/L (21-32); COR CA(FOR HYPOALB) 9.3 mg/dL (8.5-10.1); CREATININE 1.24 mg/dL (0.55-1.02); TOTAL PROTEIN 6.4 g/dL (6.4-8.2)
[2018-01-26] MEDS: SYNTHROID 150 mcg TAB PO SCH (06:27)
[2018-01-26] MEDS ORDERED: K-RIDER 10 MEQ/NS 100 ML 10 MEQ/100 ML BAG IV PRN (06:28)
[2018-01-26] MEDS ORDERED: POTASSIUM CHLORIDE LIQ 20 MEQ UDC PO PRN (06:28)
[2018-01-26] MEDS ORDERED: K-LYTE EFFERVESCENT PO PRN (06:28)
[2018-01-26] MEDS ORDERED: POTASSIUM CHL 60 MEQ/NS 0.45% 500 ML IV PRN (06:28)
[2018-01-26] MEDS ORDERED: MAGNESIUM SULFATE 1 GM/100 mL PREMIX 1 GM/100 ML BAG IV PRN (06:28)
[2018-01-26] MEDS ORDERED: POTASSIUM CHL 40 MEQ/NS 0.45% 500 ML IV PRN (06:28)
[2018-01-26 07:14] VITALS: BP 121/56
[2018-01-26] MEDS ORDERED: LEXAPRO ONE (08:38)
[2018-01-26] MEDS: LEXAPRO PO SCH (08:47)
[2018-01-26] MEDS: NICOTINE PATCH TD SCH (08:47)
== END 2018-01-26 10:54 | disposition home or self-care (01) | DRG 641 ==
LOC: ER 17:10 → MED/SURG 19:26
PROVIDERS: ADMIT Internal Medicine; ATTEND Internal Medicine
DX: E86.0 Dehydration (principal); R42 Dizziness and giddiness; R27.8 Other lack of coordination; R51 Headache; E03.8 Other specified hypothyroidism; I10 Essential (primary) hypertension; R06.02 Shortness of breath; R94.4 Abnormal results of kidney function studies; R74.8 Abnormal levels of other serum enzymes; R73.09 Other abnormal glucose
CPT/HCPCS: 36415; 70450; 80053; 81001; 82550; 82553; 83735; 84484; 85025; 93005; 94760; 96365; 96367; 99284; A4222; J3490